=== PATIENT | male | born 1995 | race Caucasian/White ===

== ENCOUNTER 2016-10-07 07:32 | Day surgery (SDC) | payer OTHER ==
[2016-10-07] VITALS (7 sets, daily range): BP systolic 100–125; BP diastolic 61–74; PULSE 49–57; TEMP 97.7
[~2016-10-07] VITALS: Ht 165.1 cm; Wt 85.5 kg
[2016-10-07] MEDS ORDERED: CONCERTA27 MG PO (08:06)
== END 2016-10-07 11:10 | disposition home or self-care (01) ==
LOC: SDCO 07:32
DX: K29.30 Chronic superficial gastritis without bleeding (principal)
CPT/HCPCS: OP; J2250; J3010; J7030